=== PATIENT | male | born 1990 | race African-American/Black ===

== ENCOUNTER 2017-04-16 13:03 | Emergency (ER) | payer BC ==
[~2017-04-16] VITALS: Ht 175.3 cm; Wt 70.3 kg
[~2017-04-16 13:03] MED LIST: FAMO-63 PO
[2017-04-16 13:45] VITALS: BP 127/87
[2017-04-16] MEDS ORDERED: DOXY100C2 PO (14:18)
--- NOTE | 2017-04-16 14:18 | PHYS DOC ---
Past Medical History Past Medical History: Migraines Past Surgical History: No Surgical History Alcohol Use: None Drug Use: None Adult General Chief Complaint Chief Complaint: HEADACHE HPI HPI Patient is a 26 year old male since emergency Department stating these had a 3 day history of pain in the right frontal sinus. He states that some nasal congestion. He denies fever, chills or any nausea or vomiting. He states he's been trying to take ibuprofen for pain and discomfort with minimal relief. Review of Systems Review of Systems Constitutional: Denies fever or chills [] Eyes: Denies change in visual acuity, redness, or eye pain [] HENT: nasal congestion, right frontal sinus pressure denies sore throat [] Respiratory: Denies cough or shortness of breath [] Cardiovascular: No additional information not addressed in HPI [] GI: Denies abdominal pain, nausea, vomiting, bloody stools or diarrhea [] : Denies dysuria or hematuria [] Musculoskeletal: Denies back pain or joint pain [] Integument: Denies rash or skin lesions [] Neurologic: Denies headache, focal weakness or sensory changes [] Endocrine: Denies polyuria or polydipsia [] Allergies Allergies Allergies Coded Allergies Type Severity Reaction Last Updated Verified No Known Drug Allergies 02/27/15 No Physical Exam Physical Exam Constitutional: Well developed, well nourished, no acute distress, non-toxic appearance. [] HENT: Normocephalic, atraumatic, bilateral external ears normal, oropharynx moist, no oral exudates, nose normal. Bilateral tympanic membranes appear to be normal. Throat without erythematous exudate or redness noted. Patient with right frontal sinus tenderness. Minimal tenderness noted on the right maxillary sinus area. Eyes: PERRLA, EOMI, conjunctiva normal, no discharge. [] Neck: Normal range of motion, no tenderness, supple, no stridor. [] Cardiovascular:Heart rate regular rhythm, no murmur [] Lungs & Thorax: Bilateral breath sounds clear to auscultation [] Skin: Warm, dry, no erythema, no rash. [] Back: No tenderness Extremities: No tenderness, no cyanosis, no clubbing, ROM intact, no edema. [] Neurologic: Alert and oriented X 3, normal motor function, normal sensory function, no focal deficits noted. [] Psychologic: Affect normal, judgement normal, mood normal. [] Current Patient Data Vital Signs Vital Signs Date Time Temp Pulse Resp B/P (MAP) Pulse Ox O2 Delivery O2 Flow Rate FiO2 04/16/17 13:45 98.3 82 18 100 Room Air 98.3 EKG EKG [] Radiology/Procedures Radiology/Procedures [] Course & Med Decision Making Course & Med Decision Making Pertinent Labs and Imaging studies reviewed. (See chart for details) She was recommended to use Tylenol and ibuprofen for fever chills generalized body aches and discomfort. Also recommended Mucinex DM [id number] for sinus pressure and drainage as well as cough. Patient was also encouraged take Sudafed [id number] to help with the sinus pressure. Encourage plenty of fluids. Patient will be placed on doxycycline for infection. He'll be discharged home in stable condition signs symptoms to return back to emergency department as been provided. [] Dragon Disclaimer Dragon Disclaimer This electronic medical record was generated, in whole or in part, using a voice recognition dictation system. Departure Departure Impression: Primary Impression: Sinusitis Disposition: 01 HOME, SELF-CARE Condition: STABLE Referrals: NO PCP (PCP) Patient Instructions: Sinusitis, [id number] Additional Instructions: Activity as tolerated Medication as prescribed Sudafed instructed by electrical calibrator [id number]. Mucinex DM instructed by electrical calibrator [id number]. Tylenol or ibuprofen for fever chills or generalized body aches and discomfort. Drink plenty of fluids. Follow-up to primary care physician in the next 5-7 days. Return back to emergency prior signs symptoms of become worse. Scripts Doxycycline Hyclate (DOXYCYCLINE HYCLATE) 100 Mg Capsule 1 CAP PO BID, #20 CAP Prov: WALESKA CHARLES APRN 04/16/17 WALESKA CHARLES MORPHOLOGIST April 16, 2017 14:18
== END 2017-04-16 14:27 | disposition home or self-care (01) ==
LOC: ER 14:12
DX: J32.9 Chronic sinusitis, unspecified (principal); G43.909 Migraine, unspecified, not intractable, without status migrainosus
CPT/HCPCS: 99283